=== PATIENT | male | born 1980 | race American Indian/Alaskan Native ===

== ENCOUNTER 2021-07-30 11:07 | Emergency (ER) | payer SELFPAY ==
--- NOTE | 2021-07-30 11:57 | Emergency Department Report ---
ED General Adult HPI - General Chief complaint: Neuro Symptoms/Deficit Stated complaint: NUMBNESS LEFT FACE AND ARMS Time Seen by Provider: 07/30/21 11:27 Source: patient Mode of arrival: Ambulatory Limitations: No Limitations - History of Present Illness Initial comments: Chief complaint: Numbness general weakness HPI: This is a 41-year-old male without known significant past history presents with left facial numbness left arm numbness. Has generalized weakness. In August almost 1 year ago he was diagnosed with dehydration when he had the similar symptoms of left facial numbness and left arm numbness. Subsequently he went to another hospital. He was admitted for 1 week at [facility] for 1 week. stroke was ruled out at that time. Neurology follow-up was recommended. He did not follow-up. He has been dealing with the facial numbness and weakness all year. He has intermittent lightheadedness. Intermittent generalized weakness. He denies paralysis. Denies difficulty walking. Denies difficulty with speech. He has had anxiety depression. He works for a [employer]. His income is not guaranteed. He has had pa lpitations. Father has history of heart surgery. Mother's history of hypertension diabetes mellitus. He denies suicidal ideation. -: Gradual, days(s) (Recurred today), year(s) (1 year) Location: face, left, upper extremity Consistency: now resolved Improves with: none Worsens with: none Associated Symptoms: denies other symptoms Treatments Prior to Arrival: none ED Review of Systems ROS: Stated complaint: NUMBNESS LEFT FACE AND ARMS Other details as noted in HPI Comment: All other systems reviewed and negative Constitutional: denies: chills, fever, malaise Respiratory: denies: cough, shortness of breath Cardiovascular: palpitations. denies: chest pain Neurological: numbness, paresthesias. denies: headache Psychiatric: anxiety, depression. denies: auditory hallucinations, visual hallucinations, homicidal thoughts, suicidal thoughts ED Past Medical Hx - Past Medical History Previous Medical History?: No - Surgical History Past Surgical History?: No - Family History Family history: diabetes, hypertension, vascular disease - Social History Smoking Status: Never Smoker Substance Use Type: None ED Physical Exam - General Limitations: No Limitations General appearance: alert, in no apparent distress - Head Head exam: Present: atraumatic, normocephalic - Eye Eye exam: Present: normal appearance - ENT ENT exam: Present: mucous membranes moist - Neck Neck exam: Present: normal inspection, full ROM - Respiratory Respiratory exam: Present: normal lung sounds bilaterally. Absent: respiratory distress, wheezes, rales, rhonchi, stridor - Cardiovascular Cardiovascular Exam: Present: regular rate, normal rhythm, normal heart sounds. Absent: systolic murmur, diastolic murmur, rubs, gallop - GI/Abdominal GI/Abdominal exam: Present: soft, normal bowel sounds. Absent: distended, tenderness, guarding, rebound - Rectal Rectal exam: Present: deferred - Extremities Exam Extremities exam: Present: normal inspection - Back Exam Back exam: Present: normal inspection - Neurological Exam Neurological exam: Present: alert, oriented X3, CN II-XII intact, normal gait - Expanded Neurological Exam Expanded Patient oriented to: Present: person, place, time Speech: Present: fluid speech Cranial nerves: EOM's Intact: Normal Cerebellar function: Finger to Nose: Normal Sensory exam: Upper Extremity Light Touch: Normal Motor strength exam: RUE: 5, LUE: 5, RLE: 5, LLE: 5 Best Eye Response (Deven): (4) open spontaneously Best Motor Response (Deven): (6) obeys commands Best Verbal Response ([place]): (5) oriented Deven Total: 15 - Psychiatric Psychiatric exam: Present: depressed, flat affect - Skin Skin exam: Present: warm, dry, intact, normal color. Absent: rash ED Course Vital Signs 07/30/21 11:12 Temperature 98.7 F Pulse Rate 83 Respiratory 15 Rate Blood Pressure 137/91 O2 Sat by Pulse 98 Oximetry ED Medical Decision Making - Lab Data Result diagrams: 07/30/21 11:55 07/30/21 11:55 - Medical Decision Making Paresthesias with generalized weakness: This is a healthy gentleman without cardiovascular risk factors. I do not suspect stroke CVA. CVA ruled out during previous admission at [facility] according to patient's report. Differential diagnosis includes atypical migraine, anxiety reaction, dehydration. CBC chemistry within normal limits. No evidence of kidney or liver disease. No evidence of anemia or electrolyte abnormality. Recommended full history and physical by outpatient primary care physician. Critical care attestation.: If time is entered above; I have spent that time in minutes in the direct care o f this critically ill patient, excluding procedure time. ED Disposition Clinical Impression: Paresthesias, Generalized weakness Disposition: 01 HOME / SELF CARE / HOMELESS Is pt being admited?: No Does the pt Need Aspirin: No Condition: Stable Instructions: Paresthesia, Weakness, [id number] Referrals: ANDREA KAY MD [Staff Physician] - 3-5 Days Forms: Work/School Release Form(ED)
[2021-07-30 12:29] LABS: Basophils # (Auto) 0.1 K/mm3 (0.0-0.1); Basophils % (Auto) 2.3 % (0.0-1.8); Eosinophils # (Auto) 0.1 K/mm3 (0.0-0.4); Eosinophils % (Auto) 1.7 % (0.0-4.3); Hematocrit 45.3 % (35.5-45.6); Hemoglobin 14.4 gm/dl (11.8-15.2); Lymphocytes % (Auto) 22.6 % (13.4-35.0); Mean Corpuscular HGB Conc 32 % (32-34); Mean Corpuscular Volume 88 fl (84-94); Monocytes # (Auto) 0.3 K/mm3 (0.0-0.8); Monocytes % (Auto) 6.8 % (0.0-7.3); Platelet Count 287 K/mm3 (140-440); Red Blood Count 5.15 M/mm3 (3.65-5.03); Red Cell Distribution Width 14.8 % (13.2-15.2)
[2021-07-30 12:48] LABS: Alanine Aminotransferase 16 units/L (7-56); Albumin 4.6 g/dL (3.9-5); BUN/Creatinine Ratio 14; Blood Urea Nitrogen 13 mg/dL (9-20); Calcium 9.7 mg/dL (8.4-10.2); Hemolysis Index 6
[2021-07-30 14:03] VITALS: BP 114/82
== END 2021-07-30 14:01 | disposition home or self-care (01) ==
LOC: ED 11:07
DX: R20.0 Anesthesia of skin (principal); R53.1 Weakness
CPT/HCPCS: 36415; 80053; 85025; 99283